=== PATIENT | female | born 1975 | race African-American/Black ===

== ENCOUNTER 2024-04-06 16:40 | Emergency (ER) | payer OTHER, SELFPAY ==
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
[2024-04-06 17:04] VITALS: BP 129/91; PULSE 118; RESP 18; TEMP 36.7; O2SAT 99; BMI 20.3
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
--- NOTE | 2024-04-06 18:40 | PC.NURSE ---
Dr Ojeda was at the bedside to review results of CT Scan. Pt then stated she was not going to wait for discharge instructions. She left with significant other with a steady gait.
== END 2024-04-06 18:42 | disposition home or self-care (01) ==
LOC: HO.ED 18:42
PROVIDERS: Emergency Provider Emergency Medicine; PCP Internal Medicine
DX: S13.4XXA Sprain of ligaments of cervical spine, initial encounter (principal); S09.90XA Unspecified injury of head, initial encounter; R51.9 Headache, unspecified; M54.2 Cervicalgia; V43.52XA Car driver injured in collision with other type car in traffic accident, initial encounter; Y93.89 Activity, other specified; Y92.410 Unspecified street and highway as the place of occurrence of the external cause; Y99.8 Other external cause status
CPT/HCPCS: 70450; 72125; 99281; 99284